=== PATIENT | female | born 1955 | race Caucasian/White ===

== ENCOUNTER 2018-07-01 12:02 | Emergency (ER) | payer OTHER ==
[~2018-07-01] VITALS: Ht 160 cm; Wt 65.8 kg
[~2018-07-01 12:02] MED LIST: CIPROFLOXACIN500 M1 PO; LORTAB 5 MG/5001 TA1 PO; NOHOMEMEDICATIONS; VICODIN 5-5001 EACH PO
[2018-07-01] MEDS ORDERED: WELLBUTRIN 75 M75 M1 PO (12:13)
[2018-07-01] MEDS ORDERED: NORCO 5-325 TA1 EACH PO (13:29)
[2018-07-01 13:37] VITALS: BP 133/73
== END 2018-07-01 13:37 | disposition home or self-care (01) ==
LOC: M.ERS 12:02
DX: M25.551 Pain in right hip (principal); Z90.49 Acquired absence of other specified parts of digestive tract

== ENCOUNTER 2018-12-03 17:45 | Emergency (ER) | payer OTHER ==
[~2018-12-03] VITALS: Ht 160 cm; Wt 68.5 kg
[~2018-12-03 17:45] MED LIST changes: +NORCO 5-325 TA1 EACH PO; +WELLBUTRIN 75 M75 M1 PO
[2018-12-03 17:58] LABS: ABSOLUTE BASOPHILS 0.1 thou/uL (0.0-0.2); ABSOLUTE EOSINOPHILS 0.4 thou/uL (0.0-0.7); ABSOLUTE LYMPHOCYTES 2.7 thou/uL (0.8-5.3); ABSOLUTE MONOCYTES 0.5 thou/uL (0.0-1.2); ABSOLUTE NEUTROPHILS 4.6 thou/uL (1.6-8.1); BASOPHILS 1.4 %; EOSINOPHILS 4.4 %; HEMATOCRIT 38.4 % (37.0-47.0); HEMOGLOBIN 13.7 gm/dL (12.0-15.0); MCH 31.9 pg (26.0-34.0); MCHC 35.6 g/dL (28.0-37.0); MCV 89.9 fL (80.0-100.0); MONOCYTES 6.1 %; MPV 6.8 fl. (7.2-11.1); NUCLEATED RBCS 0 /100WBC; PLATELET COUNT* 254 thou/uL (150-400); POLYS 55.1 %; RBC 4.27 mil/uL (4.20-5.00); RDW-CV 13.2 % (10.5-14.5); WBC 8.3 thou/uL (4.0-11.0)
[2018-12-03 18:14] LABS: ANION GAP 6 mmol/L (7-16); BUN 14 mg/dL (7-18); CHLORIDE 104 mmol/L (98-107); CO2 29 mmol/L (21-32); CREATININE 0.8 mg/dL (0.6-1.3); GLUCOSE 114 mg/dL (70-99); SODIUM 139 mmol/L (136-145)
[2018-12-03 18:26] LABS: APTT 25.5 Seconds (25.0-31.3); INR 0.9; PROTIME 9.5 Seconds (9.20-11.50); TROPONIN-I LEVEL <0.06 ng/mL (<0.06)
[2018-12-03 18:30] LABS: ALBUMIN 3.9 g/dL (3.4-5.0); ALKALINE PHOSPHATASE 178 U/L (46-116); CK-MB MASS 1.9 ng/mL (<0.5-3.6); LIPASE 131 U/L (73-393); MAGNESIUM 2.1 mg/dL (1.8-2.4); NT-PRO BRAIN NAT PEPTIDE 45 pg/mL (<300); TOTAL BILIRUBIN 0.3 mg/dL (<0.1-1.0)
[2018-12-03 18:40] VITALS: BP 125/68
[2018-12-03 18:41] LABS: SGOT 27.6 U/L (15-37); SGPT 43.2 U/L (30-65); TOTAL PROTEIN 6.7 g/dL (6.4-8.2)
--- NOTE | 2018-12-04 10:22 | EKG ---
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
== END 2018-12-03 18:48 | disposition home or self-care (01) ==
LOC: M.ERS 17:45
PROVIDERS: Family Medicine
DX: R07.89 Other chest pain (principal); Z90.49 Acquired absence of other specified parts of digestive tract

== ENCOUNTER 2019-09-30 01:26 | Inpatient (IN) | payer MEDICARE, OTHER ==
[~2019-09-30] VITALS: Ht 157.5 cm; Wt 70.8 kg
[2019-09-30 01:38] VITALS: BP 172/75
[2019-09-30 01:51] LABS: ABSOLUTE BASOPHILS 0.1 thou/uL (0.0-0.2); ABSOLUTE EOSINOPHILS 0.2 thou/uL (0.0-0.7); ABSOLUTE LYMPHOCYTES 1.9 thou/uL (0.8-5.3); ABSOLUTE MONOCYTES 0.6 thou/uL (0.0-1.2); ABSOLUTE NEUTROPHILS 4.8 thou/uL (1.6-8.1); BASOPHILS 1.2 %; EOSINOPHILS 3.2 %; HEMATOCRIT 36.7 % (37.0-47.0); HEMOGLOBIN 12.8 gm/dL (12.0-15.0); LYMPHOCYTES 24.7 %; MCH 31.4 pg (26.0-34.0); MCHC 34.9 g/dL (28.0-37.0); MCV 89.8 fL (80.0-100.0); MONOCYTES 7.6 %; MPV 6.3 fl. (7.2-11.1); NUCLEATED RBCS 0 /100WBC; PLATELET COUNT* 211 thou/uL (150-400); POLYS 63.3 %; RBC 4.09 mil/uL (4.20-5.00); RDW-CV 12.9 % (10.5-14.5); WBC 7.5 thou/uL (4.0-11.0)
[2019-09-30 02:02] LABS: CALCIUM 8.8 mg/dL (8.5-10.1); CREATININE 0.8 mg/dL (0.6-1.3); POTASSIUM 4.2 mmol/L (3.5-5.1)
[2019-09-30 02:03] LABS: APTT 26.7 Seconds (25.0-31.3)
[2019-09-30 02:12] LABS: ALBUMIN 4.1 g/dL (3.4-5.0); MAGNESIUM 2.3 mg/dL (1.8-2.4); TOTAL BILIRUBIN 0.3 mg/dL (<0.1-1.0)
[2019-09-30 02:18] LABS: URINE BILIRUBIN NEGATIVE (Negative); URINE BLOOD NEGATIVE (Negative); URINE CLARITY CLEAR; URINE COLOR YELLOW; URINE GLUCOSE-RANDOM NEGATIVE (Negative); URINE KETONES NEGATIVE (Negative); URINE LEUKOCYTES-REFLEX NEGATIVE (Negative); URINE NITRITE-REFLEX NEGATIVE (Negative); URINE PROTEIN NEGATIVE (Negative); URINE UROBILINOGEN 0.2 E.U./dl (0.2-1.0)
[2019-09-30 06:00] VITALS: BP 128/70
--- NOTE | 2019-09-30 09:00 | NUR ---
BREAKFAST TRAY GIVEN TO PT AND FAMILY MEMBER.
--- NOTE | 2019-09-30 09:53 | EKG ---
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
[2019-09-30 11:15] VITALS: BP 128/54
[2019-09-30 12:30] VITALS: BP 139/69
[2019-09-30 14:27] LABS: ALBUMIN 4.4 g/dL (3.4-5.0); CALCIUM 9.2 mg/dL (8.5-10.1); CREATININE 0.7 mg/dL (0.6-1.3); POTASSIUM 3.9 mmol/L (3.5-5.1); TOTAL BILIRUBIN 0.6 mg/dL (<0.1-1.0); TOTAL PROTEIN 7.7 g/dL (6.4-8.2)
--- NOTE | 2019-09-30 16:47 | EKG ---
[place] [address] ELECTROCARDIOGRAM REPORT Name: MAKENNA BUITRAGO Room: [address] ADM IN .R.#: [id number] Admission: 09/30/19 Attend Phys: Mila Hollins Discharge: Date of : 53 Report #: [id number] THIS REPORT FOR: //name// [facility] ED Test Date: 2019-09-30 Test Time: 01:36:02 Pat Name: MAKENNA BUITRAGO Department: Room: [facility] Gender: F [address] [place]: [place] : 1955 Requested By: Raine Doyle Order Number: [id number] MD: Martinez Almanzar Measurements Intervals [place] Rate: 77 P: 112 CA: 122 QRS: 96 QRSD: 133 T: 61 QT: 378 QTc: 428 Interpretive Statements Right and left arm electrode reversal, interpretation assumes no reversal Sinus rhythm LYNDA, consider biatrial enlargement Nonspecific intraventricular conduction delay Artifact in lead(s) I,III,aVR,aVL,aVF Compared to ECG 12/03/2018 17:48:31 Intraventricular conduction delay now present Electronically Signed On 09-30-2019 16:47:44 STATION SUPERVISOR by Martinez Almanzar [email or web address] <ELECTRONICALLY SIGNED> By: Martinez Almanzar MD, FACC 09/30/19 1647 5 Martinez Almanzar MD, FACC /EPI
--- NOTE | 2019-09-30 17:05 | 2DMMODE ---
[place] [address] 2 D/M-MODE ECHOCARDIOGRAM Name: MAKENNA BUITRAGO Room: [address] ADM IN [facility]#: [id number] Admission: 09/30/19 Attend Phys: Williams Snyder Discharge: Date of : 53 Date of Service: 09/30/19 1705 Report #: [id number] THIS REPORT FOR: //name// APPROVED REPORT Study performed: 09/30/2019 14:33:46 EXAM: Comprehensive 2D, Doppler, and color-flow Echocardiogram Patient Location: In-Patient Room #: 213 Status: routine BSA: 1.69 HR: 91 bpm BP: 139/69 mmHg Rhythm: NSR Other Information Study Quality: Fair Indications CVA/TIA Echo Enhancing Agent Indication: Rule out Shunt Agent(s) / Amount(s) Used: Agitated Saline 10 cc 2D Dimensions IVSd: 8.75 (7-11mm) LVOT Diam: 19.15 (18-24mm) LVDd: 45.28 mm PWd: 8.47 (7-11mm) Ascending Ao: 31.11 (22-36mm) LVDs: 26.79 (25-40mm) Aortic Root: 31.37 mm Volumes Left Atrial Volume (Systole) LA ESV Index: 23.10 mL/m2 Aortic Valve AoV Peak Clement.: 1.36 m/s AO Peak Gr.: 7.36 mmHg LVOT Max P.75 mmHg AO Mean Gr.: 3.51 mmHg LVOT Mean P.85 mmHg LVOT Max V: 1.30 m/s AO V2 VTI: 23.90 cm LVOT Mean V: 0.75 m/s KANNAN (VTI): 2.95 cm2 LVOT V1 VTI: 24.42 [place] [address] 2 D/M-MODE ECHOCARDIOGRAM Name: MAKENNA BUITRAGO Room: [address] IN ..#: [id number] Admission: 09/30/19 Attend Phys: Williams Snyder Discharge: Date of : 53 Date of Service: 09/30/19 1705 Report #: [id number] Mitral Valve E/A Ratio: 0.91 MV Decel. Time: 222.30 ms MV E Max Clement.: 0.76 m/s MV PHT: 64.47 ms MVA (PHT): 3.41 cm2 TDI E/Lateral E': 7.60 E/Medial E': 7.60 Medial E' Clement.: 0.10 m/s Lateral E' Clement.: 0.10 m/s Pulmonary Valve PV Peak Clement.: 1.08 m/s PV Peak Gr.: 4.68 mmHg Left Ventricle The left ventricle is normal size. There is normal LV segmental wall motion. There is normal left ventricular wall thickness. Left ventricular systolic function is normal. The left ventricular ejection fraction is within the normal range. LVEF is 60-65%. Grade I - abnormal relaxation pattern. Right Ventricle The right ventricle is normal size. The right ventricular systolic function is normal. Atria The left atrium size is normal. Interatrial septum is intact without evidence of ASD or PFO. The right atrium size is normal. Aortic Valve The aortic valve is normal in structure. No aortic regurgitation is present. There is no aortic valvular stenosis. Mitral Valve The mitral valve is normal in structure. Trace mitral regurgitation. No evidence of mitral valve stenosis. Tricuspid Valve The tricuspid valve is normal in structure. Unable to assess PA pressure. Trace tricuspid regurgitation. Pulmonic Valve Pulmonic valve is not well visualized. There is no pulmonic [place] [address] 2 D/M-MODE ECHOCARDIOGRAM Name: MAKENNA BUITRAGO Room: [address] IN ..#: [id number] Admission: 09/30/19 Attend Phys: Williams Snyder Discharge: Date of : 53 Date of Service: 09/30/19 1705 Report #: [id number] Great Vessels The aortic root is normal in size. IVC is normal in size and collapses >50% with inspiration. Pericardium There is no pericardial effusion. <Conclusion> LVEF is 60-65%. Interatrial septum is intact without evidence of ASD or PFO. <ELECTRONICALLY SIGNED> By: Martinez Almanzar MD, FACC 09/30/191704 04 04 Martinez Almanzar MD, FACC /INF
--- NOTE | 2019-09-30 18:54 | NUR ---
PT ARRIVED FROM ED AROUND 1130, PT VSS, PT NSR ON TELE, A&OX4. UP AD DELFIN NUMBNESS ON LEFT SIDE OF FACE. HOURLY ROUNDING PERFORMED. POSSESSIONS AND CALL LIGHT WITHIN REACH. AT BEDSIDE.
[2019-09-30 20:15] VITALS: BP 141/72
[2019-10-01 00:33] VITALS: BP 119/66
[2019-10-01 02:08] LABS: GLYCOHEMOGLOBIN (HGB A1C) 5.5 % (4.8-5.6)
[2019-10-01 04:00] VITALS: BP 136/61
[2019-10-01 04:49] LABS: ABSOLUTE BASOPHILS 0.1 thou/uL (0.0-0.2); ABSOLUTE EOSINOPHILS 0.3 thou/uL (0.0-0.7); ABSOLUTE LYMPHOCYTES 2.1 thou/uL (0.8-5.3); ABSOLUTE MONOCYTES 0.5 thou/uL (0.0-1.2); ABSOLUTE NEUTROPHILS 3.5 thou/uL (1.6-8.1); BASOPHILS 0.8 %; EOSINOPHILS 4.2 %; HEMATOCRIT 38.3 % (37.0-47.0); HEMOGLOBIN 13.1 gm/dL (12.0-15.0); LYMPHOCYTES 33.3 %; MCH 30.9 pg (26.0-34.0); MCHC 34.1 g/dL (28.0-37.0); MCV 90.7 fL (80.0-100.0); MPV 6.9 fl. (7.2-11.1); NUCLEATED RBCS 0 /100WBC; PLATELET COUNT* 225 thou/uL (150-400); POLYS 53.7 %; RBC 4.22 mil/uL (4.20-5.00); RDW-CV 12.9 % (10.5-14.5); WBC 6.5 thou/uL (4.0-11.0)
[2019-10-01 04:56] LABS: CHOLESTEROL 229 mg/dL (<200); HDL CHOLESTEROL 43 mg/dL (>40); LDL CHOLESTEROL 158 mg/dL (<100); TC:HDL 5.3 Ratio (Not establshd); TRIGLYCERIDE 142 mg/dL (<150); VLDL 28 mg/dL (<40)
[2019-10-01 05:08] LABS: SERUM ASSESSMENT CLEAR
--- NOTE | 2019-10-01 05:16 | NUR ---
PT SLEPT MOST OF SHIFT. ASSESSMENT DOCUMENTED. MEDS GIVEN PER E-MAR. IV PATENT, FLUIDS INFUSING. NO REPORTS OF PAIN. WILL CONTINUE WITH PLAN OF CARE.
[2019-10-01 05:53] LABS: ANION GAP 11 mmol/L (7-16); BUN 11 mg/dL (7-18); CALCIUM 8.7 mg/dL (8.5-10.1); CHLORIDE 107 mmol/L (98-107); CO2 24 mmol/L (21-32); CREATININE 0.7 mg/dL (0.6-1.3); GLUCOSE 100 mg/dL (70-99); POTASSIUM 4.2 mmol/L (3.5-5.1); SODIUM 142 mmol/L (136-145); TROPONIN-I LEVEL <0.06 ng/mL (<0.06)
[2019-10-01 07:42] VITALS: BP 112/70
[2019-10-01 08:00] VITALS: BP 112/70
[2019-10-01 11:17] VITALS: BP 125/68
[2019-10-01] MEDS ORDERED: ASPIR 8181 MG PO (11:55)
[2019-10-01] MEDS ORDERED: ASA81BEC PO (11:56)
[2019-10-01] MEDS ORDERED: LIPITOR 40 MG T40 M1 PO (11:58)
[2019-10-01 12:01] VITALS: BP 125/68
--- NOTE | 2019-10-01 18:59 | NUR ---
PT VSS, NSR ON TELE, A&OX4, NIH-0, UP AD DELFIN, REC DISCHARGE ORDERS, REVIEWED WITH PATIENT AND ANSWERED QUESTIONS, REMOVED TELE MONITOR AND IV WITHOUT COMPLICATION, GAVE PT HARD SCRIPT AND CARENOTES. PT WALKED TO FRONT DOOR WITH NURSING STAFF, WHERE PICKED UP BY SPOUSE IN CAR.
--- NOTE | 2019-10-02 18:36 | NUR ---
PT VSS, NSR ON TELE, A&OX4, PT REPORTS SEVERE PAIN FROM MIGRAINE HEADACHES. PT STAND BY ASSIST. HOURLY ROUNDING PERFORMED, POSSESSIONS AND CALL LIGHT WITHIN REACH. REC DISCHARGE ORDERS, REVIEWED WITH PATIENT, GAVE PAPER SCRIPTS AND CARE NOTES TO PATIENT. REMOVED TELE MONITOR AND IV WITHOUT COMPLICATION. PT TAKEN TO THE FRONT DOOR IN WHEELCHAIR WITH NURSING STAFF AND PICKED UP IN CAR BY SON.
== END 2019-10-01 12:30 | disposition home or self-care (01) | DRG 69 ==
LOC: M.ERS 01:26 → M.TBA-ER 03:42 → M.2W 11:36
PROVIDERS: Internal Medicine; Personal Emergency Response Attendant; ADMIT Internal Medicine
DX: G45.9 Transient cerebral ischemic attack, unspecified (principal); R29.810 Facial weakness; F12.90 Cannabis use, unspecified, uncomplicated; R20.2 Paresthesia of skin; Z23 Encounter for immunization; Z90.49 Acquired absence of other specified parts of digestive tract; Z79.899 Other long term (current) drug therapy

== ENCOUNTER 2021-04-10 18:52 | Emergency (ER) | payer MEDICARE, OTHER ==
[~2021-04-10] VITALS: Ht 157.5 cm; Wt 68.0 kg
[~2021-04-10 18:52] MED LIST changes: +ASA81BEC PO; +ASPIR 8181 MG PO; +LIPITOR 40 MG T40 M1 PO
[2021-04-10] MEDS ORDERED: VENTOLIN HFA INH8 GM INH (19:04)
[2021-04-10] MEDS ORDERED: MEDROLDOSEPACK PO (19:05)
[2021-04-10 19:22] LABS: ABSOLUTE BASOPHILS 0.1 thou/uL (0.0-0.2); ABSOLUTE EOSINOPHILS 0.1 thou/uL (0.0-0.7); ABSOLUTE LYMPHOCYTES 1.9 thou/uL (0.8-5.3); ABSOLUTE MONOCYTES 0.4 thou/uL (0.0-1.2); ABSOLUTE NEUTROPHILS 6.6 thou/uL (1.6-8.1); BASOPHILS 0.8 %; EOSINOPHILS 0.8 %; HEMATOCRIT 39.5 % (37.0-47.0); HEMOGLOBIN 13.7 gm/dL (12.0-15.0); LYMPHOCYTES 21.2 %; MCH 30.5 pg (26.0-34.0); MCHC 34.6 g/dL (28.0-37.0); MONOCYTES 4.5 %; NUCLEATED RBCS 0 /100WBC; PLATELET COUNT* 263 thou/uL (150-400); POLYS 72.7 %; RBC 4.48 mil/uL (4.20-5.00)
[2021-04-10 19:25] LABS: CREATININE 0.7 mg/dL (0.6-1.3); POTASSIUM 4.1 mmol/L (3.5-5.1)
[2021-04-10 19:35] LABS: ALBUMIN 4.8 g/dL (3.4-5.0); MAGNESIUM 2.2 mg/dL (1.8-2.4); TOTAL BILIRUBIN 0.4 mg/dL (<0.1-1.0); TOTAL PROTEIN 7.8 g/dL (6.4-8.2)
[2021-04-10 19:39] LABS: INR 0.9; PROTIME 10.1 Seconds (9.20-11.50)
[2021-04-10 20:59] LABS: URINE BILIRUBIN NEGATIVE (Negative); URINE BLOOD NEGATIVE (Negative); URINE CLARITY CLEAR; URINE COLOR YELLOW; URINE GLUCOSE-RANDOM NEGATIVE (Negative); URINE KETONES NEGATIVE (Negative); URINE LEUKOCYTES-REFLEX NEGATIVE (Negative); URINE NITRITE-REFLEX NEGATIVE (Negative); URINE PROTEIN NEGATIVE (Negative); URINE SPECIFIC GRAVITY 1.015 (1.005-1.030); URINE UROBILINOGEN 0.2 E.U./dl (0.2-1.0)
[2021-04-10 21:54] VITALS: BP 165/85
--- NOTE | 2021-04-11 12:29 | EKG ---
[place] [address] ELECTROCARDIOGRAM REPORT Name: MAKENNA BUITRAGO Room: 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1955 Requested By: Edita Londono Order Number: [id number] MD: Amauri Felipe Measurements Intervals [place] Rate: 79 P: 68 AL: 116 QRS: 69 QRSD: 107 T: 9 QT: 409 QTc: 469 Interpretive Statements Sinus rhythm Borderline short AL interval Borderline ST depression, diffuse leads Baseline wander in lead(s) V1,V2,V3,V4,V5,V6 Compared to ECG 09/30/2019 01:41:24 No significant changes Electronically Signed On 04-11-2021 12:29:08 CDT by Amauri Felipe [email or web address] <ELECTRONICALLY SIGNED> By: Amauri Felipe MD, FAC 04/11/21 1229 57 57 Amauri Felipe MD, FAC /EPI
== END 2021-04-10 21:55 | disposition home or self-care (01) ==
LOC: M.ERS 18:52
PROVIDERS: Emergency Medicine
DX: R07.89 Other chest pain (principal); Z90.49 Acquired absence of other specified parts of digestive tract

== ENCOUNTER → 2021-05-10 | Outpatient (CLI) | payer OTHER ==
[~2021-05-10] MED LIST changes: +AZELASTINE205.5 MCG/ NARES; +CALTRATE 600 +1 EAC1 PO; +MEDROLDOSEPACK PO; +OSTEO BI-FLEX1 EAC2 PO; +SUPER THERAVIT1 EACH PO; +VENTOLIN HFA INH8 GM INH; +VITAMIN D31250 MC1 PO
== END ==
LOC: M.CT 11:35
DX: Z13.6 Encounter for screening for cardiovascular disorders (principal)

== ENCOUNTER → 2021-05-15 | Outpatient (CLI) | payer MEDICARE, OTHER ==
--- NOTE | 2021-05-15 16:11 | CARDNUC ---
[place] [address] CARDIAC NUCLEAR IMAGING REPORT Name: MAKENNA BUITRAGO RADHA Room: [facility]#: [id number] Admission: 05/15/21 Attend Phys: Peyman Cloud, Discharge: Date of : 53 Date of Service: 05/15/21 1611 Report #: [id number] THIS REPORT FOR: cc: RENETTA PRESCOTT Physician not on staff Peyman Cloud MD [facility] ~ APPROVED REPORT Study performed: 05/15/2021 11:23:52 Exam: Nuclear Stress Test Indication: Chest pain, nausea Patient Location: Out-Patient Stress Tech: Piper Raymundo Stress Nurse: ACE MONTIEL Ht: 5 ft 2 in Wt: 154 lbs BSA: 1.71 m2 HR: 73 bpm BP: 142/70 mmHg BMI: 28.16 Medical History Medical History: CHEST PAIN, NAUSEA, COUGH, MARIJUANA USE, HTN, HLD, FHX CAD, OCCASIONAL HIP PAIN. Medications: ASA 81MG, ATORVASTATIN Allergies: NKDA Cardiac Risk Factors: Age, Hyperlipidemia, HTN, FHX of CAD. Previous Cardiac Procedures: NONE Pretest Chest Pain Characteristics: No chest pain Exercise History: Physically active Physical Disabilities: OCCASIONAL HIP PAIN. Meds Held (24 hrs): NONE Stress Test Details Stress Test: Exercise stress testing was performed using a Juaquin protocol. HR Resting HR: 73 bpm Max Heart Rate (APMHR): 153 bpm Max HR Achieved: 154 bpm Target HR (85% APMHR): 130 bpm % of APMHR: 100 Recovery HR: 86 bpm BP Resting BP: 142/70 mmHg Max BP: 218/72 [place] [address] CARDIAC NUCLEAR IMAGING REPORT Name: MAKENNA BUITRAGO Room: [facility]#: [id number] Admission: 05/15/21 Attend Phys: Peyman Cloud, Discharge: Date of : 53 Date of Service: 05/15/21 1611 Report #: [id number] Resting ECG: Sinus Rhythm, nonspecific ST-T abnormalities Stress ECG: Sinus Rhythm, nonspecific ST-T abnormalities ST Change: None Arrhythmia: None Recovery ECG: Sinus Rhythm, nonspecific ST-T abnormalities Recovery ST Change: None Recovery Arrhythmia: None Clinical Reason for Termination: Completed protocol, Maximal effort Stress Symptoms: DYSPNEA, FATIGUE. Exercise duration: 6 min 25 sec Exercise capacity: 7.70 METs The patient tolerated standard Juaquin protocol exercise without significant cardiac symptoms. Nurse Comments A 66 YEAR OLD FEMALE TOLERATED A TREADMILL NUCLEAR STRESS TEST TO STAGE 3, TARGET HR ACHIEVED. RECOVERY UNREMARKABLE. PATIENT WAS STABLE AND STATED SHE FELT GOOD WHEN ESCORTED TO NUCLEAR MEDICINE FOR IMAGING. EXERCISE CAPACITY - BORDERLINE NORMAL TO SUPERIOR. Stress ECG Conclusion The baseline twelve-lead EKG shows sinus rhythm with nonspecific ST segment depression diffusely. EKGs obtained during and post exercise show sinus rhythm and sinus tachycardia with no significant ST segment changes when compared to baseline. There were no stress-induced arrhythmias. NM EXAM: Myocardial Perfusion REST/STRESS Imaging Protocol: Rest Tc-99m/Stress Tc-99m 1 day Resting Data Rest SPECT myocardial perfusion imaging was performed in supine position 30 minutes following the intravenous injection of 10.3 mCi of Tc-99m Sestamibi. Time of rest injection: 09:50 The images were gated to evaluate regional wall motion and calculate left ventricular ejection fraction. Administration Route: IV Administration Site: [place] [address] CARDIAC NUCLEAR IMAGING REPORT Name: MAKENNA BUITRAGO Room: [facility]#: [id number] Admission: 05/15/21 Attend Phys: Peyman Cloud, Discharge: Date of : 53 Date of Service: 05/15/21 1611 Report #: [id number] Exercise Stress At peak stress, the patient was injected intravenously with 34.6mCi of Tc-99m Sestamibi. Time of stress injection: 11:30 Administration Route: IV Administration Site: Right Hand Heart Rate at time of stress injection: 154 bpm. Patient continued to exercise for 1 minute(s). Gated Stress SPECT was performed 90 minutes after stress injection. The images were gated to evaluate regional wall motion and calculate left ventricular ejection fraction. Prone imaging was performed. Study Quality Study: Good Artifact: No artifact Study Data At rest, the left ventricular ejection fraction was 73%.. Post stress, the left ventricular ejection was 75%.. TID = 0.91. Perfusion Perfusion images obtained at rest and post exercise stress showed uniform uptake of the radioisotope throughout the myocardium. There were no defects to suggest infarct or ischemia. Wall Motion Normal left ventricular wall motion. Nuclear Conclusion ECG Findings: non-diagnostic Clinical Findings: negative for ischemia Nuclear Findings: negative for ischemia Exercise Capacity: normal Left Ventricular Function: normal Risk Study: low Perfusion images show no defect to suggest infarct or ischemia. Left ventricular systolic function appears normal on gated studies. This is a low risk study. <Conclusion> The baseline twelve-lead EKG shows sinus rhythm with nonspecific ST segment depression diffusely. EKGs obtained during and post exercise show sinus rhythm and sinus tachycardia with no [place] [address] CARDIAC NUCLEAR IMAGING REPORT Name: MAKENNA BUITRAGO RADHA Room: [facility]#: [id number] Admission: 05/15/21 Attend Phys: Peyman Cloud, Discharge: Date of : 53 Date of Service: 05/15/21 1611 Report #: [id number] segment changes when compared to baseline. There were no stress-induced arrhythmias. <ELECTRONICALLY SIGNED> By: Peyman Cloud MD, FACC 05/15/211610 10 10 Peyman Cloud MD, [facility] /INF
== END ==
LOC: M.NUC 08:00 → M.CRD 09:00 → M.NUC 09:33
PROVIDERS: ATTEND Internal Medicine Cardiovascular Disease
DX: R00.0 Tachycardia, unspecified (principal); R07.9 Chest pain, unspecified; R53.83 Other fatigue